=== PATIENT | female | born 1965 | race Two or more races ===

== ENCOUNTER → 2017-02-23 | Outpatient (CLI) | payer OTHER ==
--- NOTE | ~2017-02-23 | CR58 ---
[facility] A Service of [facility] & [facility] RADIOLOGY TEXT RESULTS PATIENT: STEFFANY SAMUELS LOCATION: [facility] : 65 UNIT #: [id number] AGE: [address]: Delma Fountain APRN SEX: F ORDER DR: [id number] [facility] [address] [place], [place] [address] [id number] O MR#: [id number] Acc #: [id number] NAME: STEFFANY SAMUELS : 1965 SEX: F STUDY DATE/TIME: 02/23/2017 12:48 UNIT: [facility] ROOM: STUDY DESCRIPTION: CR Cervical Spine 2 or 3 Views Attending Physician: Delma Fountain A.P.R.N. Ordering Physician: Delma Fountain A.P.R.N. Primary Care Physician: No Primary Care Physician MEDICAL IMAGING REPORT This report is preliminary unless electronic signature is present EXAM Cervical spine. HISTORY Neck pain for weeks. FINDINGS AP, lateral, open-mouth and swimmer's views are submitted. Cervical alignment is normal. 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 This involves the anterior and posterior elements. There is facet disease just above the fused site at C4-5. No fractures or subluxation are seen. 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 Dictated by... Wilbert Zazueta M.D. THIS IS AN ELECTRONICALLY VERIFIED REPORT Wilbert Zazueta M.D. at 02/24/2017 9:17 AM KIANA/lon TD: 02/23/2017 19:35 JOB #: [id number] MEDICAL IMAGING REPORT Page 1 of 1 COPY
--- NOTE | ~2017-02-23 | CR181 ---
[facility] A Service of [facility] & [facility] RADIOLOGY TEXT RESULTS PATIENT: STEFFANY SAMUELS LOCATION: [facility] : 65 UNIT #: [id number] AGE: [address]: Delma Fountain APRN SEX: F ORDER DR: [id number] [facility] [address] [place], [place] [address] [id number] O MR#: [id number] Acc #: [id number] NAME: STEFFANY SAMUELS : 1965 SEX: F STUDY DATE/TIME: 02/23/2017 12:47 UNIT: [facility] ROOM: STUDY DESCRIPTION: CR Lumbar Spine 2 or 3 Views Attending Physician: Delma Fountain A.P.R.N. Ordering Physician: Delma Fountain A.P.R.N. Primary Care Physician: No Primary Care Physician MEDICAL IMAGING REPORT This report is preliminary unless electronic signature is present EXAM Lumbosacral spine. HISTORY Low back pain radiating to the hips for weeks. FINDINGS AP, lateral and spot views are obtained. Lumbar alignment is normal. Disc space and vertebral body height is maintained. No fractures are seen. There is minimal marginal spur formation. CONCLUSION Negative lumbosacral spine. Dictated by... Wilbert Zazueta M.D. THIS IS AN ELECTRONICALLY VERIFIED REPORT Wilbert Zazueta M.D. at 02/24/2017 9:17 AM KIANA/lon TD: 02/23/2017 19:34 JOB #: [id number] MEDICAL IMAGING REPORT Page 1 of 1 COPY
--- NOTE | ~2017-02-23 | CR219 ---
[facility] A Service of [facility] & [facility] RADIOLOGY TEXT RESULTS PATIENT: STEFFANY SAMUELS LOCATION: [facility] : 65 UNIT #: [id number] AGE: [address]: Delma Fountain APRN SEX: F ORDER DR: [id number] [facility] [address] [place], [place] [address] [id number] O MR#: [id number] Acc #: [id number] NAME: STEFFANY SAMUELS : 1965 SEX: F STUDY DATE/TIME: 02/23/2017 12:46 UNIT: [facility] ROOM: STUDY DESCRIPTION: CR Sacrum and Coccyx Min 2 Vie Attending Physician: Delma Fountain A.P.R.N. Ordering Physician: Delma Fountain A.P.R.N. Primary Care Physician: No Primary Care Physician MEDICAL IMAGING REPORT This report is preliminary unless electronic signature is present STUDY Sacrum and coccyx. HISTORY Pain in low back and hips for weeks. FINDINGS Four views are submitted. Bony elements are intact and in normal alignment. Sacrum is unremarkable. CONCLUSION Negative. Dictated by... Wilbert Zazueta M.D. THIS IS AN ELECTRONICALLY VERIFIED REPORT Wilbert Zazueta M.D. at 02/24/2017 9:17 AM KIANA/lon TD: 02/23/2017 19:32 JOB #: [id number] MEDICAL IMAGING REPORT Page 1 of 1 COPY
== END | disposition home or self-care (01) ==
LOC: CRAD 12:12
DX: M54.40 Lumbago with sciatica, unspecified side (principal); Q76.49 Other congenital malformations of spine, not associated with scoliosis
CPT/HCPCS: 72040; 72100; 72220